=== PATIENT | male | born 1975 | race Caucasian/White ===

== ENCOUNTER 2023-10-18 01:13 | Inpatient (IN) | payer MEDICAID ==
[~2023-10-18] VITALS: Ht 182.9 cm; Wt 111.4 kg
[2023-10-18 01:46] LABS: BASOPHILS % (AUTO) 0.4 % (0.0-2.0); EOSINOPHILS % (AUTO) 2.9 % (1.0-6.0); HEMATOCRIT 40.8 % (41-53); HEMOGLOBIN 13.9 g/dL (13.5-17.5); LYMPHOCYTES # (AUTO) 3.3 K/uL (1.0-4.8); LYMPHOCYTES % (AUTO) 42.3 % (22.0-44.0); MEAN CORPUSCULAR HEMOGLOBIN 29.8 pg (26.0-34.0); MEAN CORPUSCULAR HGB CONC 34.1 G/dL (31.0-37.0); MEAN CORPUSCULAR VOLUME 87 fL (80-100); MONOCYTES # (AUTO) 0.9 K/uL (0.1-1.0); MONOCYTES % (AUTO) 11.6 % (2.0-9.0); NEUTROPHILS # (AUTO) 3.3 K/uL (1.8-7.7); NEUTROPHILS % (AUTO) 42.8 % (40.0-70.0); PLATELET COUNT (AUTO) 85 K/uL (150-450); RED BLOOD CELL COUNT(AUTO) 4.68 MIL/uL (4.50-5.90); RED CELL DISTRIBUTION WIDTH 13.7 % (11.5-14.5); WHITE BLOOD COUNT (AUTO) 7.8 K/uL (4.5-11.0)
[2023-10-18 01:55] LABS: ANION GAP 14 mmol/L (8-16); CALCIUM, TOTAL 9.7 mg/dL (8.8-10.5); CARBON DIOXIDE 25 mmol/L (22-29); CHLORIDE 109 mmol/L (98-107); CREATININE 0.79 mg/dL (0.60-1.30); GLOMERULAR FILTR. RATE CALC > 60 mL/min (>60); GLUCOSE,RANDOM 113 mg/dL (70-110); POTASSIUM 3.7 mmol/L (3.5-5.1); SODIUM SERUM 148 mmol/L (136-145); UREA NITROGEN, BLOOD 11 mg/dL (7-18)
[2023-10-18 02:01] LABS: ALANINE AMINOTRANSFERASE 46 U/L (12-78); ALBUMIN 3.4 g/dL (3.4-5.0); ALKALINE PHOSPHATASE 66 U/L (46-116); ASPARTATE AMINOTRANSFERASE 19 U/L (15-37); BILIRUBIN,TOTAL 0.1 mg/dL (0.1-1.0); TOTAL PROTEIN, SERUM 7.7 g/dL (6.4-8.2)
[2023-10-18 02:07] LABS: ACETAMINOPHEN < 2 mcg/mL (10-30)
[2023-10-18 02:08] LABS: AMPHET/METH SCREEN,URINE NEGATIVE (NEGATIVE); BARBITURATE SCREEN, URINE NEGATIVE (NEGATIVE); BENZODIAZEPINES SCREEN,URINE NEGATIVE (NEGATIVE); CANNABINOID SCREEN,URINE NEGATIVE (NEGATIVE); COCAINE SCREEN,URINE NEGATIVE (NEGATIVE); METHADONE SCREEN, URINE NEGATIVE (NEGATIVE); OPIATE SCREEN,URINE NEGATIVE (NEGATIVE); PHENCYCLIDINE SCREEN,URINE NEGATIVE (NEGATIVE)
[2023-10-18 02:10] LABS: ALCOHOL, URINE DRUG SCREEN POSITIVE (NEGATIVE)
[2023-10-18 02:15] LABS: ALCOHOL, BLOOD (SERUM) 350 mg/dL (0-10)
[2023-10-18 02:24] LABS: SALICYLATE 1.1 mg/dL (2.8-20.0)
[2023-10-18 02:40] LABS: COVID AG,FIA SOURCE NASAL SWAB
[2023-10-18] MEDS ORDERED: HALOPERIDOL 5 MG TABLET PO PRN (03:00)
[2023-10-18 03:01] LABS: SARS-COV2 (COVID) ANTIGEN,FIA Negative (Negative)
[2023-10-18 03:18] LABS: APPEARANCE,URINE CLEAR (CLEAR); BILIRUBIN,URINE NEGATIVE (NEGATIVE); COLOR,URINE COLORLESS (YELLOW); GLUCOSE, URINE (UA) NEGATIVE (NEGATIVE); KETONES,URINE NEGATIVE (NEGATIVE); LEUKOCYTE ESTERASE ,URINE NEGATIVE (NEGATIVE); NITRATE,URINE NEGATIVE (NEGATIVE); PROTEIN,URINE NEGATIVE (NEGATIVE); SPECIFIC GRAVITIY, URINE 1.009 (1.003-1.030); UROBILINOGEN,URINE <=1.0 mg/dL (<=1.0)
[2023-10-18 03:20] LABS: OCCULT BLOOD,URINE NEGATIVE (NEGATIVE)
[2023-10-18] MEDS ORDERED: LORazepam 2 MG/ML VIAL IM ONE (04:30)
[2023-10-18] MEDS ORDERED: HALOPERIDOL LACTATE 5 MG/ML VIAL IM ONE (04:30)
[2023-10-18] MEDS ORDERED: DiphenhydrAMINE HCL 50 MG/ML VIAL IM ONE (04:30)
[2023-10-18] MEDS ORDERED: CloNIDine HCL 0.1 MG TABLET PO PRN (09:45)
[2023-10-18] MEDS ORDERED: ACETAMINOPHEN 325 MG TABLET PO PRN (09:45)
[2023-10-18] MEDS ORDERED: ONDANSETRON HCL 4 MG TABLET PO PRN (09:45)
[2023-10-18] MEDS ORDERED: LOPERAMIDE HCL 2 MG CAPSULE PO PRN (09:45)
[2023-10-18] MEDS ORDERED: PETROLATUM,WHITE 28 GM JELLY TP PRN (09:45)
[2023-10-18] MEDS ORDERED: BACITRACIN 28 GM OINTMENT TP PRN (09:45)
[2023-10-18] MEDS ORDERED: DOCUSATE SODIUM 100 MG CAPSULE PO PRN (09:45)
[2023-10-18] MEDS ORDERED: ALBUTEROL SULFATE HFA 90 MCG/PUFF 8 GM INHALER IH PRN (09:45)
[2023-10-18] MEDS ORDERED: BENZOCAINE/MENTHOL LOZENGE PO PRN (09:45)
[2023-10-18] MEDS ORDERED: MAG HYDROX/ALUMINUM HYD/SIMETH ES 30 ML SUSPENSION UDCUP PO PRN (09:45)
[2023-10-18] MEDS ORDERED: MAGNESIUM HYDROXIDE SUSPENSION 30 ML UDCUP PO PRN (09:45)
[2023-10-18] MEDS ORDERED: OMEPRAZOLE 20 MG CAPSULE PO PRN (09:45)
[2023-10-18 12:17] VITALS: BP 146/105; PULSE 19; RESP 18; TEMP 97.8; O2SAT 96
[2023-10-18 23:07] VITALS: RESP 18
[2023-10-19 07:05] VITALS: BP 138/98; PULSE 18; RESP 18; TEMP 98; O2SAT 98
[2023-10-19] MEDS: IBUPROFEN 600 MG TABLET PO PRN (07:12)
[2023-10-19 08:12] VITALS: BP 138/89; PULSE 96; RESP 18; TEMP 97.9
[2023-10-19 08:12] LABS: ANION GAP 10 mmol/L (8-16); CALCIUM, TOTAL 9.8 mg/dL (8.8-10.5); CARBON DIOXIDE 28 mmol/L (22-29); CHLORIDE 101 mmol/L (98-107); CREATININE 1.02 mg/dL (0.60-1.30); GLOMERULAR FILTR. RATE CALC > 60 mL/min (>60); GLUCOSE,RANDOM 114 mg/dL (70-110); POTASSIUM 3.6 mmol/L (3.5-5.1); SODIUM SERUM 139 mmol/L (136-145); UREA NITROGEN, BLOOD 9 mg/dL (7-18)
[2023-10-19 09:00] LABS: ALCOHOL, BLOOD (SERUM) < 3 mg/dL (0-10)
[2023-10-19 09:29] VITALS: BP 143/99; PULSE 18; RESP 18; TEMP 97.8; O2SAT 99
[2023-10-19 22:15] VITALS: BP 125/78; PULSE 18; RESP 18; TEMP 98.3; O2SAT 98
[2023-10-19] MEDS: ZOLPIDEM TARTRATE 10 MG TABLET PO PRN (23:17)
[2023-10-19] MEDS: LORazepam 2 MG TABLET PO PRN (23:19)
[2023-10-20 08:15] VITALS: BP 114/58; PULSE 112; RESP 18; TEMP 97.4; O2SAT 95
[2023-10-20] MEDS: BICTEGRAV/EMTRICIT/TENOFOV ALA 50-200-25 MG TABLET PO SCH (08:57)
[2023-10-20 17:19] VITALS: BP 122/77; PULSE 94; RESP 17; TEMP 98; O2SAT 96
[2023-10-20] MEDS: IBUPROFEN 600 MG TABLET PO PRN (17:19)
[2023-10-20] MEDS: LORazepam 2 MG TABLET PO PRN (20:10)
[2023-10-20 20:40] VITALS: BP 131/81; PULSE 97; RESP 18; TEMP 97.9; O2SAT 97
[2023-10-20] MEDS: ZOLPIDEM TARTRATE 10 MG TABLET PO PRN (20:44)
[2023-10-21 04:20] VITALS: BP 148/97; PULSE 73; RESP 18; TEMP 98.8; O2SAT 97
[2023-10-21] MEDS: IBUPROFEN 600 MG TABLET PO PRN (04:29)
[2023-10-21 05:20] VITALS: RESP 18; TEMP 98.5
[2023-10-21] MEDS: BICTEGRAV/EMTRICIT/TENOFOV ALA 50-200-25 MG TABLET PO SCH (09:01)
[2023-10-21 09:28] VITALS: BP 112/74; PULSE 93; RESP 18; TEMP 98.1; O2SAT 98
== END 2023-10-21 15:00 | disposition home or self-care (01) | DRG 753 ==
LOC: EMS 01:13 → 3EC 08:53
PROVIDERS: ADMIT Psychiatry & Neurology Psychiatry; ATTEND Psychiatry & Neurology Psychiatry
DX: F31.9 Bipolar disorder, unspecified (principal); R45.851 Suicidal ideations; F10.129 Alcohol abuse with intoxication, unspecified; E66.9 Obesity, unspecified; F41.9 Anxiety disorder, unspecified; G47.00 Insomnia, unspecified; Z20.822 Contact with and (suspected) exposure to COVID-19; K59.00 Constipation, unspecified; Z68.33 Body mass index [BMI] 33.0-33.9, adult
CPT/HCPCS: 80048; 80053; 80307; 81003; 85025; 87081; 93005; G0480; G0481; J1200; J1630; J2060; Q9967

== ENCOUNTER 2023-11-25 23:36 | Emergency (ER) | payer MEDICAID ==
[2023-11-26 00:22] LABS: COVID AG,FIA SOURCE NASAL SWAB
[2023-11-26 00:33] LABS: SARS-COV2 (COVID) ANTIGEN,FIA Negative (Negative)
[2023-11-26 00:35] LABS: INFLUENZA TYPE A NEGATIVE FOR TYPE A (NEGATIVE); INFLUENZA TYPE B NEGATIVE FOR TYPE B (NEGATIVE)
[2023-11-26] MEDS ORDERED: AZIT250T9 PO (01:55)
== END 2023-11-26 02:14 | disposition home or self-care (01) ==
LOC: EMS 23:37
DX: J03.90 Acute tonsillitis, unspecified (principal); F32.A Depression, unspecified; F10.90 Alcohol use, unspecified, uncomplicated; Z98.890 Other specified postprocedural states; Z20.822 Contact with and (suspected) exposure to COVID-19
CPT/HCPCS: 87804; 99283